=== PATIENT | male | born 1955 | race Caucasian/White ===

== ENCOUNTER 2020-10-11 06:39 | Outpatient (CLI) | payer MEDICARE ==
[2020-10-11 10:02] LABS: #Eosinphils 0.1 10x3/uL (0.0-0.5); #Monocytes 0.4 10x3/uL (0.0-1.1); #Neutrophils 3.5 10x3/uL (1.5-8.4); %Basophils 0.7 % (0.0-2.0); %Eosinophils 2.5 % (0.0-6.0); %Lymphocytes 26.1 % (18.0-47.0); %Monocytes 7.7 % (0.0-10.0); %Neutrophils 62.8 % (40.0-75.0); Hemoglobin 14.3 g/dL (14.0-18.0); Mean Corpuscular HGB CONC 31.8 G/DL (32.0-36.0); Mean Corpuscular Hemoglobin 28.9 PG (27.0-33.0); Mean Corpuscular Volume 90.9 fl (80.0-100.0); Mean Platelet Volume 10.2 fl (7.4-10.4); Platelet Count 159 10x3/uL (130-400); Red Blood Cell (RBC) Count 4.95 10x6/uL (4.40-5.80); White Blood Cell (WBC) Count 5.6 10x3/uL (4.5-11.0)
[2020-10-11 10:30] LABS: ALT (SGPT) 16 U/L (8-55); AST (SGOT) 16 U/L (5-34); Albumin 4.3 g/dL (3.4-4.8); Alkaline Phosphatase 75 U/L (40-110); Anion Gap 13 mmol/L (10-20); BUN (Urea Nitrogen) 15 mg/dL (8.4-25.7); Calc. Creatinine Clearance 0 mL/min (70-130); Calcium 9.1 mg/dL (7.8-10.44); Carbon Dioxide 30 mmol/L (23-31); Chloride 103 mmol/L (98-107); Globulin 2.2 g/dL (2.4-3.5); Glucose 99 mg/dL (80-115); Potassium 4.4 mmol/L (3.5-5.1); Protein, Total 6.5 g/dL (5.8-8.1); Sodium 142 mmol/L (136-145)
[2020-10-12 11:41] LABS: SARS-CoV-2 PCR by NAA Not Detected (NotDetected)
--- NOTE | 2020-10-13 09:09 | EKG ---
Test Reason : Blood Pressure : / mmHG Vent. Rate : 062 BPM Atrial Rate : 062 BPM P-R Int : 168 ms QRS Dur : 098 ms QT Int : 432 ms P-R-T Axes : 041 -24 007 degrees QTc Int : 438 ms Sinus rhythm with Premature atrial complexes with Abberant conduction Low voltage QRS Borderline ECG Confirmed by BENJAMIN CODY ([id number]) on 10/13/2020 9:09:30 AM Referred By: STEFANIA Confirmed By:BENJAMIN CODY
== END 2020-10-11 06:40 | disposition home or self-care (01) ==
LOC: LABBT 06:39
PROVIDERS: ATTEND Internal Medicine Cardiovascular Disease
DX: Z01.818 Encounter for other preprocedural examination (principal); Z01.812 Encounter for preprocedural laboratory examination; R94.39 Abnormal result of other cardiovascular function study; Z20.822 Contact with and (suspected) exposure to COVID-19
CPT/HCPCS: 80053; 85025; 93005; U0003; U0005; 87635; 93010

== ENCOUNTER 2020-10-14 05:47 | Observation (INO) | payer MEDICARE ==
[2020-10-12 13:51] VITALS: BMI 42.8
[2020-10-14] MEDS ORDERED: Heparin 10,000 UNITS/ 10 ML VIAL ONE (06:41)
[2020-10-14] MEDS ORDERED: Midazolam HCl 2 mg/2 ml Vial ONE (06:53)
[2020-10-14] MEDS ORDERED: Fentanyl 100 MCG/2 ML VIAL ONE (06:53)
[2020-10-14 07:07] LABS: Cardiac Risk 2.9 (Less than 4.5)
[2020-10-14] MEDS ORDERED: Protamine Sulfate 50 MG/5 ML VIAL ONE (07:35)
[2020-10-14] MEDS ORDERED: Sodium Chloride 0.9% 1,000 ML IV SCH (09:15)
[2020-10-14] MEDS ORDERED: Nitroglycerin 0.4 MG TAB (25 Tab Bottle) SL PRN (09:15)
[2020-10-14] MEDS ORDERED: Acetaminophen/Codeine 30-300mg Tablet PO PRN ×2 (09:15)
[2020-10-14] MEDS: Hydrochlorothiazide 25 MG TAB PO SCH (09:43)
[2020-10-14] MEDS: Aspirin 81 mg Enteric Coated Tablet PO SCH (09:44)
[2020-10-14] MEDS: Losartan 25 MG TAB PO SCH (09:44)
[2020-10-14] MEDS ORDERED: Iopamidol 370 76% 100 ML VIAL ONE (13:03)
[2020-10-14] MEDS ORDERED: Iopamidol 370 76% 50 ML VIAL FS ONE (13:03)
[2020-10-14] MEDS ORDERED: Atorvastatin Calcium 40 MG TAB PO SCH (21:00)
[2020-10-15] MEDS: Losartan 25 MG TAB PO SCH (09:14)
[2020-10-15] MEDS: Hydrochlorothiazide 25 MG TAB PO SCH (09:14)
[2020-10-15] MEDS: Aspirin 81 mg Enteric Coated Tablet PO SCH (09:14)
--- NOTE | 2020-10-15 10:26 | CT ---
CT angiogram chest: 10/15/2020 COMPARISON: None HISTORY: Evaluate course of left coronary artery, recent cardiac catheter demonstrated the left coron becca artery to arise from the right coronary artery. TECHNIQUE: Axial CT imaging at 2.5 mm intervals through the chest with IV contrast using CT angiogram protocol. Coronal and sagittal 3-D reformatted imaging obtained. FINDINGS: This study was not performed as a CT angiogram of the coronary arteries. Thus, assessment o f the coronary arteries is limited secondary to motion. Imaged upper abdomen appears grossly unremarkable. No pleural, pericardial, or mediastinal fluid is n oted. The mediastinal, hilar, and axillary regions demonstrate no lymphadenopathy. The lung parenchyma demonstrates mild increased linear density in the inferior posterior aspect of th e lingula suggesting scar and/or volume loss. There is extrapleural fat within the lung bases, right greater than left. There is no evidence for aneurysm or dissection of the imaged aorta. Secondary to motion artifact it is difficult to define the course of the coronary arteries. The origi n of the right coronary artery is seen along the anterior aspect of the ascending aorta on axial image 72. Based on recent catheterization, the origin of the left coronary artery appears to arise fr om the region of the ostium of the right coronary artery on the left, seen on axial image 72. Secondary to motion, the left coronary artery cannot be visualized on images 63 through 71. There is an artery between the ascending aorta and main pulmonary artery on axial image 61 and 62 which is suspicious for an inter arterial course ("malignant course") of the left coronary artery. The origin of the LAD is difficult to visualize secondary to motion. Probable LAD coronary arterial calcification noted on axial image 54. The osseous structures of the chest demonstrate degenerative change within the thoracic spine with di sc space narrowing and anterior osteophyte formation. IMPRESSION: Detailed anatomy of the coronary arterial vasculature is limited secondary to motion. 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 Recommend a dedicated CT angiogram of the coronary arteries as definitive anatomic evaluation is critical in this case.
[2020-10-15] MEDS ORDERED: Dextrose 5% in Water 1,000 ML IV PRN (12:00)
[2020-10-15] MEDS ORDERED: HumaLOG 300 UNITS/3 ML VIAL SC PRN (12:00)
[2020-10-15] MEDS ORDERED: Dextrose 50% Abboject 50 ML SYRINGE IVP PRN (12:00)
[2020-10-15 12:01] VITALS: BP 153/76; TEMP 97.9
--- NOTE | 2020-10-15 13:27 | CON ---
DATE OF CONSULTATION: HISTORY OF PRESENT ILLNESS: This is a [id number] gentleman with multiple cardiovascular risk factors including type 2 diabetes mellitus, hypertension, dyslipidemia, followed by Dr. Floyd Davila. [facility] right after Thanksgiving for some dull aching left upper chest discomfort, unrelated to exertion. Cardiac enzymes were negative x2, and he was referred to Dr. Gloria for further evaluation where a PET stress study showed apical ischemia. The patient has not had recurrence of his symptoms. He generally lives an active lifestyle. Cardiac catheterization done yesterday showed a large dominant right coronary artery with no disease and then a left system that was very nondominant, arising from the right coronary ostium, that appeared to track between the aorta and pulmonary artery before coursing over the ventricle. The vessel was not very large and did not seem large enough to justify filling the remainder of the heart, this was not filled from the large right system. Left ventricular systolic function was mildly diminished, but overall well preserved. Ascending aorta was somewhat enlarged at 4 cm. As mentioned, the patient has hypertension, dyslipidemia, and type 2 diabetes mellitus. PHYSICAL EXAMINATION: GENERAL: His height 6 feet 1 inch, weight 325, BMI 43. NECK: No carotid bruits. LUNGS: Clear to auscultation anteriorly. CARDIAC: Regular rate and rhythm. No murmurs. ABDOMEN: Obese, nontender. EXTREMITIES: He has no peripheral edema, with some superficial varicosities in the right leg. He has palpable pedal pulses in both feet. PAST SURGICAL HISTORY: The patient has had an injury to his right lower extremity resulting in wound closure with subsequent I and D. He has also had a right greater saphenous vein stripping in the past locally. 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 He has had 1 episode of chest discomfort that was somewhat atypical and does have an abnormal stress test in the apical region of his heart. Unfortunately, the only vessel that arises from this anomalous origin appears to be a rather small vessel, and I am not sure I can justify a single-vessel coronary bypass grafting to this target. Unfortunately, the chest CT does not give us much information about the coronary arteries distally, but perhaps, a dedicated CT coronary angiogram could document whether this is the only left- sided vessel or whether there is something else that we have not identified at the time of cath. It could add some justification to coronary bypass grafting. I have discussed all these with the patient, and he understands. Job ID: [id number] MTDD
--- NOTE | 2020-10-17 07:40 | DIS ---
DATE OF ADMISSION: 10/14/2020 DATE OF DISCHARGE: 10/15/2020 DISCHARGE DIAGNOSES: 1. Distal anterior wall ischemia. 2. 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 3. Hypertension. 4. Diabetes. 5. Hypercholesterolemia. 6. Diastolic dysfunction. DISCHARGE MEDICATIONS: Remain the same as on admission. DISCHARGE DISPOSITION: Arrangements to be made for a coronary CT angiogram. HOSPITAL COURSE: Mr. Liu was evaluated in the office for atypical chest discomfort. He was found to have distal anterior wall ischemia and underwent cardiac catheterization. Ejection fraction was 50% to 55%. There was a 20% proximal right coronary artery stenosis. The left coronary artery arose from the right coronary artery. He underwent CT of the chest with contrast and it was difficult study due to movement artifact, but possibly the left coronary artery coursed between the aorta and pulmonary artery. Arrangements will be made for a coronary CT angiogram for better definition. The patient was also seen by Dr. Ventura in consultation regarding this. Job ID: [id number] [facility]
== END 2020-10-15 15:04 | disposition home or self-care (01) ==
LOC: CCL 05:47 → 2NO 07:42
PROVIDERS: ADMIT Internal Medicine Cardiovascular Disease; ATTEND Internal Medicine Cardiovascular Disease
PROC: 4A023N7 Measurement of Cardiac Sampling and Pressure, Left Heart, Percutaneous Approach (ICD-10-PCS; principal; 2020-10-14)
PROC: B2111ZZ Fluoroscopy of Multiple Coronary Arteries using Low Osmolar Contrast (ICD-10-PCS; 2020-10-14)
DX: Q24.5 Malformation of coronary vessels (principal); I25.10 Atherosclerotic heart disease of native coronary artery without angina pectoris; I11.9 Hypertensive heart disease without heart failure; E11.9 Type 2 diabetes mellitus without complications; E78.00 Pure hypercholesterolemia, unspecified; G47.33 Obstructive sleep apnea (adult) (pediatric); Z79.82 Long term (current) use of aspirin; Z79.84 Long term (current) use of oral hypoglycemic drugs; Z79.899 Other long term (current) drug therapy
CPT/HCPCS: 71275; 80061; 85347; 93458; 99152; 99153; G0378; J1644; J2250; J2720; J3010; Q9967